=== PATIENT | male | born 1945 | race Caucasian/White ===

== ENCOUNTER 2019-11-04 | Emergency (ER) | payer OTHER, MEDICARE ==
[2019-11-04 10:19] LABS: HEMATOCRIT 36.8 % (39.0-50.0); HEMOGLOBIN 12.8 g/dl (14.0-18.0); IMMATURE GRANULOCYTES 0.5 % (0.0-5.0); MEAN CELL VOLUME 94.4 fL CALC (80.0-100.0); MEAN CORPUSCULAR HGB 32.8 pG CALC (26.0-32.0); MEAN CORPUSCULAR HGB CONC 34.8 g/L CALC (32.0-36.0); NEUT# 4.07 thou/uL (1.82-7.42); RED BLOOD COUNT 3.9 mill/uL (4.70-6.10); RED CELL DISTRI WIDTH 12.3 % (11.5-15.5)
[2019-11-04 10:36] LABS: ANION GAP 11 (6-22 (CALC)); BUN 25 mg/dL (8-23); BUN/CREATININE RATIO 23 (12-20 (CALC)); CARBON DIOXIDE 27 mmol/l (22-30); CHLORIDE 99 mmol/l (95-108); CREATININE 1.1 mg/dL (0.7-1.3); GFR > 60 ML/MIN (>=60 (CALC)); GFR FOR AFR.AMER. > 60 ML/MIN (>=60 (CALC)); POTASSIUM 4.4 mmol/l (3.5-5.1); SODIUM 132 mmol/l (137-146)
[2019-11-04] MEDS ORDERED: SYMBICORT1 AE1 IN (11:18)
[2019-11-04] MEDS ORDERED: LIPITOR40 M1 PO (11:18)
[2019-11-04] MEDS ORDERED: ASPIRIN81 MG PO (11:18)
[2019-11-04] MEDS ORDERED: OMEPRAZOLE DR20 MG (11:19)
[2019-11-04] MEDS ORDERED: METOPROL TAR25 MG PO (11:19)
[2019-11-04] MEDS ORDERED: FISH OIL1000 MG PO (11:20)
[2019-11-04] MEDS ORDERED: VITAMI16 PO (11:20)
[2019-11-04] MEDS ORDERED: CHONDROITIN PO (11:20)
== END 2019-11-04 11:10 | disposition home or self-care (01) | DRG 125 ==
PROVIDERS: Family Medicine
DX: H57.12 Ocular pain, left eye (principal); I10 Essential (primary) hypertension